=== PATIENT | male | born 2000 | race Caucasian/White ===

== ENCOUNTER 2020-02-28 04:38 | Emergency (ER) | payer OTHER ==
--- NOTE | 2020-02-28 05:08 | EDM.PDOC ---
ED HPI GENERAL MEDICAL PROBLEM - General Chief Complaint: Drug or Alcohol Abuse Stated Complaint: UNRESPONSIVE Time Seen by Provider: 02/28/20 04:46 - History of Present Illness INITIAL COMMENTS - FREE TEXT/NARRATIVE: 19-year-old male was found on the side of the road by passersby just prior to arrival. He was apparently initially difficult to arouse but then he was he was brought to the emergency department for evaluation. Here the patient endorses being at a bonfire tonight drinking "4 or 5" beers. He denies any other intoxicants. He denies any medical problems. He endorses drinking once or twice a week whenever there is a bonfire. 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 He denies any pain, and denies being cold. Patient denies any recent illnesses, fevers, chest pain, shortness of breath, trauma, he speaking in linear sensible sentences. Patient reports taking no medication. abdominal Pain Score (Numeric/FACES): 6 - Related Data Allergies Allergy/AdvReac Type Severity Reaction Status Date / Time Unable to Assess Allergy Unverified 02/28/20 04:39 Home Meds: Home Meds . [Unable to Verify Home Med List] 02/28/20 [History] Past Medical History - Past Health History Medical/Surgical History: Denies Medical/Surgical History HEENT History: Reports: None Cardiovascular History: Reports: None Respiratory History: Reports: None Gastrointestinal History: Reports: None Genitourinary History: Reports: None Musculoskeletal History: Reports: None Neurological History: Reports: None Psychiatric History: Reports: None Other Psychiatric History: Pt states no medical history Endocrine/Metabolic History: Reports: None Hematologic History: Reports: None Immunologic History: Reports: None Dermatologic History: Reports: None - Infectious Disease History Infectious Disease History: Reports: None - Past Surgical History Other HEENT Surgeries/Procedures: Pt states no medical history Other Cardiovascular Surgeries/Procedures: Pt states no medical history Other Respiratory Surgeries/Procedures: Pt states no medical history Other GI Surgeries/Procedures: Pt states no medical history Other Male Surgeries/Procedures: Pt states no medical history Other Endocrine Surgeries/Procedures: Pt states no medical history Other Neurological Surgeries/Procedures: Pt states no medical history Other Oncologic Surgeries/Procedures: Pt states no medical history Social & Family History - Family History Family Medical History: Noncontributory - Tobacco Use Smoking Status *Q: Never Smoker - Recreational Drug Use Recreational Drug Use: No ED ROS GENERAL - Review of Systems Review Of Systems: Comprehensive ROS is negative, except as noted in HPI. ED EXAM, GENERAL - Physical Exam Exam: See Below Free Text/Narrative:: General: No acute distress. Comfortable. Heent: Examination revealed no pallor, no icterus, no lymphadenopathy. The patient has normal posterior pharynx, moist mucous membranes. There are no external signs of trauma on the skull and there is no tenderness of the skull. Neck: Supple. No JVD. No rigidity. Heart: Normal rate. Reg rhythm. No murmurs appreciated. Lungs: Bilaterally clear to auscultation. No focal findings. Back: Nontender to hammer percussion for the length of the spine. Abdomen: Nontender, non-distended, soft, no CVA tenderness. Neuro: Pt is moving all four extremities. EOMI. PERRL. Normal speech. Pupils 3 mm and reactive. 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 Oriented to president, name, cannot answer questions about the day of the week and continuously answers with months. Skin: Exposed areas appeared normally perfused, warm, normal color with no meaningful rashes or lesions. Extremities: Peripheral examination revealed no pedal edema. Peripheral pulses were 2+. Course - Vital Signs Text/Narrative:: Patient likely simply intoxicated. He acts like he is mildly intoxicated however he is having trouble to limit what day of the week it is. In fact he will not mention any days the week he keeps talking about months on a mask about weeks. This is not entirely consistent with mild to moderate intoxication. According will check for basic panel as well as some drug screen and will check ethanol level. There is no suggestion here of head trauma there is no bruising tenderness redness and the patient has very short hair would be very difficult to hide meaningful trauma of the head. No clear indication now for head CT. However the patient remains disoriented after better understanding how intoxicated he is and/or after some time for sobering, we can consider CT at that time. Furthermore the patient reports being dropped off by folks at an intersection trying to help him get home. He reports just being tired and intoxicated and laying down to nap. Alcohol here just over 200 mg/dL. Course is reassuring this may be the reason for his unclear thinking. We will keep him for an additional hour or so while he waits for his ride and make sure that he is ambulating normally and has no changes in his condition otherwise can be discharged home with a safe ride or similar. Pt was up and ambulatory and making calls for a ride home when he was discharged. Last Recorded V/S: Last Vital Signs Temp 98.1 F 02/28/20 06:13 Pulse 91 02/28/20 06:13 Resp 16 02/28/20 06:13 BP 129/73 02/28/20 06:13 Pulse Ox 93 L 02/28/20 06:13 - Orders/Labs/Meds Labs: Laboratory Tests 02/28/20 02/28/20 Range/Units 05:01 05:05 Sodium 142 (136-148) mmol/L Potassium 4.3 (3.5-5.1) mmol/L Chloride 102 (98-107) mmol/L Carbon Dioxide 29.1 (21.0-32.0) mmol/L BUN 6 L (7.0-18.0) mg/dL Creatinine 0.9 (0.8-1.3) mg/dL Est Cr Clr Drug Dosing 104.12 mL/min Estimated GFR (MDRD) > 60.0 ml/min Glucose 118 H (74-106) mg/dL Calcium 8.5 (8.5-10.1) mg/dL Total Bilirubin 0.4 (0.2-1.0) mg/dL AST 23 (15-37) IU/L ALT 34 (14-63) IU/L Alkaline Phosphatase 84 (46-116) U/L Total Protein 8.3 H (6.4-8.2) g/dL Albumin 4.5 (3.4-5.0) g/dL Globulin 3.8 (2.6-4.0) g/dL Albumin/Globulin Ratio 1.2 (0.9-1.6) Urine Opiates Screen NEGATIVE (NEGATIVE) Ur Oxycodone Screen NEGATIVE (NEGATIVE) Urine Methadone Screen NEGATIVE (NEGATIVE) Ur Barbiturates Screen NEGATIVE (NEGATIVE) Ur Phencyclidine Scrn NEGATIVE (NEGATIVE) Ur Amphetamine Screen NEGATIVE (NEGATIVE) U Methamphetamines Scrn NEGATIVE (NEGATIVE) U Benzodiazepines Scrn NEGATIVE (NEGATIVE) U Cocaine Metab Screen NEGATIVE (NEGATIVE) U Marijuana (THC) Screen NEGATIVE (NEGATIVE) Ethyl Alcohol 206 mg/dL Departure - Departure Time of Disposition: 05:41 Disposition: Home, Self-Care 01 Condition: Good Clinical Impression: Alcohol intoxication Qualifiers: Complication of substance-induced condition: uncomplicated Qualified Code(s): F10.920 - Alcohol use, unspecified with intoxication, uncomplicated - Discharge Information Instructions: Alcohol Intoxication, [id number] Referrals: PCP,None [Primary Care Provider] - Forms: ED Department Discharge Additional Instructions: Be careful with your alcohol use. Alcohol use at your age can develop into longer term or more consistent use. Could also lead to dangerous behaviors like passing out in or around roads. Consider treatment if your alcohol use begins to affect your daily life. Drink plenty of water the next 12 to 24 hours as you will likely be somewhat dehydrated. Consider anti-inflammatory medications like ibuprofen for headache. Return to emergency [facility] with any weakness, confusion, repetitive vomiting or any other concerning symptoms. The following information is given to patients seen in the emergency department who are being discharged to home. This information is to outline your options for follow-up care. We provide all patients seen in our emergency department with a follow-up referral. The need for follow-up, as well as the timing and circumstances, are variable depending upon the specifics of your emergency department visit. If you don't have a primary care physician on staff, we will provide you with a referral. We always advise you to contact your personal physician following an emergency department visit to inform them of the circumstance of the visit and for follow-up with them and/or the need for any referrals to a consulting specialist. The emergency department will also refer you to a specialist when appropriate. This referral assures that you have the opportunity for follow-up care with a specialist. All of these measure are taken in an effort to provide you with optimal care, which includes your follow-up. Under all circumstances we always encourage you to contact your private physician who remains a resource for coordinating your care. When calling for follow-up care, please make the office aware that this follow-up is from your recent emergency room visit. If for any reason you are refused follow-up, please contact the [facility] Emergency Department at and asked to speak to the emergency department charge nurse. Sepsis Event Note - Evaluation Sepsis Screening Result: No Definite Risk - Focused Exam Vital Signs: Vital Signs Temp Pulse Resp BP Pulse Ox 02/28/20 06:13 98.1 F 91 16 129/73 93 L 02/28/20 05:36 86 16 121/80 96 02/28/20 04:40 97.3 F 102 H 18 136/95 H 100 Date Exam was Performed: 02/28/20 Time Exam was Performed: 07:06
[2020-02-28 05:34] LABS: BLOOD UREA NITROGEN,BUN 6 mg/dL (7.0-18.0); CARBON DIOXIDE,CO2 29.1 mmol/L (21.0-32.0); CHLORIDE,CL 102 mmol/L (98-107); GLUCOSE RANDOM 118 mg/dL (74-106); POTASSIUM,K 4.3 mmol/L (3.5-5.1); SODIUM,NA 142 mmol/L (136-148)
== END 2020-02-28 07:23 | disposition home or self-care (01) ==
LOC: MW.ED 04:38
DX: F10.920 Alcohol use, unspecified with intoxication, uncomplicated (principal)
CPT/HCPCS: 36415; 80053; 80305-QW; 80307; 99283; 99284

== ENCOUNTER 2022-05-14 21:15 | Emergency (ER) | payer SELFPAY ==
[2022-05-14] MEDS ORDERED: Sodium Chloride 0.9% 1,000 ML IV ONE (21:35)
[2022-05-14] MEDS ORDERED: LORazepam 2 MG/ML Syringe IVPUSH ONE (21:35)
[2022-05-14] MEDS ORDERED: Sodium Chloride 0.9% 2.5 ML Syringe FLUSH PRN (21:35)
[2022-05-14] MEDS ORDERED: Sodium Chloride 0.9% 10 ML Syringe FLUSH PRN (21:35)
[2022-05-14] MEDS ORDERED: LORazepam 2 MG/ML SDV ONE (21:39)
[2022-05-14] MEDS ORDERED: LORazepam 2 MG/ML SDV IVPUSH STA (21:48)
[2022-05-14 22:16] LABS: POTASSIUM,K 3.4 mmol/L (3.5-5.1)
== END 2022-05-15 01:09 | disposition home or self-care (01) ==
LOC: MW.ED 21:15
DX: F41.0 Panic disorder [episodic paroxysmal anxiety] (principal)
CPT/HCPCS: 36415; 71045; 80053; 83735; 84484; 85025; 93005; 96361; 96374; 99284; J2060; J3490; J7030; 93010

== ENCOUNTER 2024-03-10 04:08 | Emergency (ER) | payer SELFPAY ==
[2024-03-10] MEDS: Bacitracin Oint 1 GM U/D Packet TOP ONE (04:34)
== END 2024-03-10 04:49 | disposition home or self-care (01) ==
LOC: MW.ED 04:08
DX: S63.502A Unspecified sprain of left wrist, initial encounter (principal); S00.81XA Abrasion of other part of head, initial encounter; Y04.0XXA Assault by unarmed brawl or fight, initial encounter; Z75.8 Other problems related to medical facilities and other health care
CPT/HCPCS: 99283